=== PATIENT | male | born 1935 | race Caucasian/White ===

== ENCOUNTER 2017-03-19 12:59 | Emergency (ER) | payer OTHER ==
[~2017-03-19] VITALS: Ht 167.6 cm; Wt 54.5 kg
[~2017-03-19 12:59] MED LIST: ADVIN25/60 INH; ASPCH81X PO; CMBIN INH; EZET10TA47 PO; ISOS30TA35 PO; LACTCHW3 PO; LEVO1TAB33 PO; MAGN400T5 PO; NITR0.4S UT; OXYC7.5T78 PO; SENN-65 PO; SIMV20TA2 PO; SPRIN/30 INH
[2017-03-19 13:04] VITALS: TEMP 36.8; Ht 167.6 cm; Wt 54.5 kg
--- NOTE | 2017-03-19 13:22 | EMERGENCY ROOM VISIT NOTE ---
History Report prepared by Kirti: Josefa Joe Under the Supervision of: Dr. Hood Brown M.D. First contact with patient: 13:08 Chief Complaint: ILLNESS Stated Complaint: LOW BLOOD PRESSURE History of Present Illness The patient is a 81 year old male who presents to the Emergency Room with complaints of episodes of low blood pressure occurring at 4am this morning. The patient states that he got very dizzy this morning and begun sweating excessively. The patient then fell to the ground. He thinks he had a syncopal episode that last a few seconds. The patient did hit is head. He notes that months ago he burnt his left leg and has been followed by the wound clinic. He also notes that he has been loosing weight recently, about 30 pounds all together. The patient denies any other symptoms at this time. Source of History: patient Onset: 4 am this morning Position: other (global) Quality: other (low blood pressure) Timing: other (episode) Note: The patient denies any other symptoms at this time. Review of Systems See HPI for pertinent positives & negatives. A total of 10 systems reviewed and were otherwise negative. Past Medical & Surgical Medical Problems: (1) Cerebrovascular disease (2) Chronic obstructive lung disease (3) Dyslipidemia (4) s/p appendectomy (5) s/p coronar stenting (6) s/p inguinal hernia repair (7) s/p traumatic amputation fingers Family History FH: lung disease FHx: cancer FHx: heart disease Hypertension Social History Smokeless Tobacco Use: No Alcohol Use: other (6-8 beers daily) Marital Status: Housing Status: lives alone Occupation Status: retired Current/Historical Medications Scheduled Aspirin (Aspirin Chewable), 81 MG PO DAILY Cephalexin Monohydrate (Keflex), 500 MG PO TID Fluticasone Prop/Salmeterol (Advair Diskus 250/50 60 Dose), 1 PUFF INH BID Home O2 Therapy (Oxygen), 2 LITERS NA PRN Nitroglycerin (Nitrostat), 0.4 MG UT PRN Polyethylene Glycol 3350 (Miralax), 17 GM PO 3XWK Simvastatin (Zocor), 20 MG PO QPM Thiamine Hcl (Vitamin B-1), 100 MG PO DAILY Tiotropium [place] (Spiriva Handihaler), 1 CAP INH DAILY Scheduled PRN Acetaminophen (Tylenol), 500 MG PO UD PRN for Pain Hydrocodone/Acetaminophen 5MG/325MG ([place] 5MG/325MG), 1 TABLET PO Q8 PRN for Pain Ipratropium-Albuterol (Combivent Respimat), 2 PUFFS INH QID PRN for SOB/Wheezing Tramadol (Ultram), 50 MG PO Q8H PRN for Pain Allergies Coded Allergies: Penicillins (Verified Allergy, 11/02/09) Physical Exam Vital Signs Date Time Temp Pulse Resp B/P (MAP) Pulse Ox O2 Delivery O2 Flow Rate FiO2 03/19/17 15:00 65 18 130/73 03/19/17 14:25 70 17 112/69 96 03/19/17 13:04 36.8 88 20 96/62 98 Room Air Physical Exam GENERAL: Patient is chronically unwell appearing and in no acute distress. HEENT: No acute trauma, normocephalic atraumatic, mucous membranes moist, no nasal congestion, no scleral icterus. NECK: No stridor, no adenopathy, no meningismus, trachea is midline. LUNGS: No dyspnea. Clear to auscultation and equal bilaterally. No wheeze, no rhonchi. HEART: Regular rate and rhythm. No murmurs, rubs, gallops appreciated. ABDOMEN: Soft, nontender, bowel sounds positive, no masses appreciated, no peritonitis. BACK: No midline tenderness, no CVA tenderness EXTREMITIES: Normal motion all extremities, no cyanosis, no edema. Wound to left skin well dressed with no infection sign above the dressing. Patient notes dressing changed today and reports no evidence of infection. NEUROLOGIC: Alert and oriented, no acute motor or sensory deficits, no focal weakness, cranial nerves grossly intact. SKIN: No rash, no jaundice, no diaphoresis. Medical Decision & Procedures ER Provider Diagnostic Interpretation: Radiology results and stated below per my review and radiologist interpretation: HEAD CT NONCONTRAST CT DOSE: 537.48 mGy.cm HISTORY: Mental status change near-syncope, frontal head injury TECHNIQUE: Multiaxial CT images of the head were performed without the use of intravenous contrast. Comparison: None. Findings: The paranasal sinuses and mastoid air cells are clear. The calvarium and skull base are intact. The ventricles and sulci are within normal limits. There is no mass, hematoma, midline shift, or acute infarct. 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 Age-related atrophy and chronic small vessel change. Impression: No acute intracranial abnormality. Age-related change. Electronically signed by: Barrington Elizabeth M.D. 03/19/2017 2:24 PM Dictated Date/Time: 03/19/2017 2:22 PM CHEST ONE VIEW PORTABLE HISTORY: Atypical Chest Pain COMPARISON: Chest 05/03/2012. FINDINGS: Stable calcified granulomas within the left upper lobe. No new focal lung consolidations to suggest pneumonia. Mild diffuse interstitial thickening which is likely chronic. This remains unchanged. No pleural effusions. No pneumothorax. The heart is stable in size. Stable benign-appearing sclerotic lesion within the left humeral head. IMPRESSION: No significant change compared to the prior study. No acute process. Electronically signed by: Indio Muniz M.D. 03/19/2017 1:50 PM Dictated Date/Time: 03/19/2017 1:47 PM Laboratory Results 03/19/17 13:18 Red Blood Count 4.40, Mean Corpuscular Volume 89.3, Mean Corpuscular Hemoglobin 30.2, Mean Corpuscular Hemoglobin Concent 33.8, Mean Platelet Volume 10.8, Neutrophils (%) (Auto) 68.1, Lymphocytes (%) (Auto) 21.9, Monocytes (%) (Auto) 8.6, Eosinophils (%) (Auto) 0.8, Basophils (%) (Auto) 0.3, Neutrophils # (Auto) 4.50, Lymphocytes # (Auto) 1.45, Monocytes # (Auto) 0.57, Eosinophils # (Auto) 0.05, Basophils # (Auto) 0.02 03/19/17 13:18 Test 03/19/17 13:18 White Blood Count 6.61 K/uL (4.8-10.8) Red Blood Count 4.40 M/uL (4.7-6.1) Hemoglobin 13.3 g/dL (14.0-18.0) Hematocrit 39.3 % (42-52) Mean Corpuscular Volume 89.3 fL (80-100) Mean Corpuscular Hemoglobin 30.2 pg (25-34) Mean Corpuscular Hemoglobin Concent 33.8 g/dl (32-36) Platelet Count 215 K/uL (130-400) Mean Platelet Volume 10.8 fL (7.4-10.4) Neutrophils (%) (Auto) 68.1 % Lymphocytes (%) (Auto) 21.9 % Monocytes (%) (Auto) 8.6 % Eosinophils (%) (Auto) 0.8 % Basophils (%) (Auto) 0.3 % Neutrophils # (Auto) 4.50 K/uL (1.4-6.5) Lymphocytes # (Auto) 1.45 K/uL (1.2-3.4) Monocytes # (Auto) 0.57 K/uL (0.11-0.59) Eosinophils # (Auto) 0.05 K/uL (0-0.5) Basophils # (Auto) 0.02 K/uL (0-0.2) RDW Standard Deviation 43.9 fL (36.4-46.3) RDW Coefficient of Variation 13.4 % (11.5-14.5) Immature Granulocyte % (Auto) 0.3 % Immature Granulocyte # (Auto) 0.02 K/uL (0.00-0.02) Anion Gap 11.0 mmol/L (3-11) Est Creatinine Clear Calc Drug Dose 54.3 ml/min Estimated GFR () 96.1 Estimated GFR (Non- 82.9 BUN/Creatinine Ratio 30.5 (10-20) Calcium Level 9.4 mg/dl (8.5-10.1) Magnesium Level 2.2 mg/dl (1.8-2.4) Troponin I < 0.015 ng/ml (0-0.045) Laboratory results as reviewed by me. Medications Administered Medications (Trade) Dose Ordered Sig/[facility] Route Start Time Stop Time Status Last Admin Dose Admin Sodium Chloride 500 ml @ 999 mls/hr Q31M STAT IV 03/19/17 14:25 03/19/17 14:55 DC 03/19/17 14:25 999 MLS/HR ECG Indication: other (hypotension) Rate (beats per minute): 71 Rhythm: sinus rhythm Findings: 1st degree AV block, no acute ischemic change, no ectopy Change: no significant change (from May 03, 2012) ED Course 1309: The patient was evaluated in room C11. A complete history and physical exam was performed. 1425: Sodium Chloride 500 ml @ 999 mls/hr IV. 1431: The patient is feeling better. He is going to wait for IV fluids and then will be discharged home. 1445: Reevaluated the patient. Discussed results and discharge instructions: He verbalized understanding and agreement. The patient is ready for discharge. Medical Decision Differential: Vaso-vagal, Intracerebral Event, Neurologic, Infectious, Volume Deficiency, Hypoglycemia, Electrolyte Abnormality, Cardiac Source, Toxicologic, amongst other pathologies entertained. Medication Reconciliation: I attest that I have personally reviewed the patient 's current medication list. GCS of 15. Blood pressure screening: Patient was found to have normal blood pressure on screening and does not require follow-up. Pleasant 81 yr old male with near-syncope/syncope this morning around 4 am and hit his forehead. Mildly dehydrated. Labs unremarkable. CT head negative. CXR clear. EKG looks OK. Trop negative > 6 hours from episode. He is not interested in staying. Is not shob and symptoms not consistent with PE. Chronic wound left dobbins thus I feel dimer not applicable. Is not interested in staying in hospital. Aware can rted at any time if worsening or other concerns. Impression Primary Impression: Weakness Additional Impression: Syncope, near Scribe Attestation The scribe's documentation has been prepared under my direction and personally reviewed by me in its entirety. I confirm that the note above accurately reflects all work, treatment, procedures, and medical decision making performed by me. Departure Information Dispostion Home / Self-Care Referrals Libby George M.D. (PCP) Forms HOME CARE DOCUMENTATION FORM, IMPORTANT VISIT INFORMATION, WORK / SCHOOL INSTRUCTIONS Patient Instructions ED Near Syncope Unkn, My [facility] Problem Qualifiers
[2017-03-19] MEDS ORDERED: CEPH500C2 PO (13:37)
[2017-03-19] MEDS ORDERED: ACET-1256 PO (13:37)
[2017-03-19] MEDS ORDERED: HYDR-5688 PO (13:37)
[2017-03-19] MEDS ORDERED: TRAM-10 PO (13:37)
[2017-03-19] MEDS ORDERED: THIA100T11 PO (13:37)
[2017-03-19] MEDS ORDERED: POLY335019 PO (13:37)
[2017-03-19] MEDS ORDERED: IPRA1AER2 INH (13:37)
[2017-03-19] MEDS ORDERED: OXGN (13:37)
[2017-03-19 13:43] LABS: BASO % 0.3 %; BASO ABS # 0.02 K/uL (0-0.2); COMPLETE YES; EOS % 0.8 %; HEMATOCRIT 39.3 % (42-52); IG% 0.3 %; LYMPH % 21.9 %; LYMPH ABS # 1.45 K/uL (1.2-3.4); MEAN CELL VOLUME 89.3 fL (80-100); MEAN CORPUSCULAR HEMOGLOBIN 30.2 pg (25-34); MEAN CORPUSCULAR HGB CONC 33.8 g/dl (32-36); MEAN PLATELET VOLUME 10.8 fL (7.4-10.4); MONO % 8.6 %; NEUT % 68.1 %; PLATELET COUNT 215 K/uL (130-400); WHITE BLOOD COUNT 6.61 K/uL (4.8-10.8)
--- NOTE | 2017-03-19 13:51 | DIAGNOSTIC IMAGING REPORT ---
CHEST ONE VIEW PORTABLE HISTORY: Atypical Chest Pain COMPARISON: Chest 05/03/2012. FINDINGS: Stable calcified granulomas within the left upper lobe. No new focal lung consolidations to suggest pneumonia. Mild diffuse interstitial thickening which is likely chronic. This remains unchanged. No pleural effusions. No pneumothorax. The heart is stable in size. Stable benign-appearing sclerotic lesion within the left humeral head. IMPRESSION: No significant change compared to the prior study. No acute process. Electronically signed by: Indio Muniz M.D. 03/19/2017 1:50 PM Dictated Date/Time: 03/19/2017 1:47 PM
[2017-03-19 14:06] LABS: BLOOD UREA NITROGEN 26 mg/dl (7-18); BUN/CREATININE RATIO 30.5 (10-20); CALCIUM 9.4 mg/dl (8.5-10.1); CARBON DIOXIDE 21 mmol/L (21-32); CHLORIDE 108 mmol/L (98-107); CREATININE 0.85 mg/dl (0.60-1.40); GLUCOSE 118 mg/dl (70-99); MAGNESIUM 2.2 mg/dl (1.8-2.4); POTASSIUM 4.1 mmol/L (3.5-5.1); SODIUM 140 mmol/L (136-145)
[2017-03-19 14:25] VITALS: O2SAT 96
[2017-03-19] MEDS ORDERED: SODIUM CHLORIDE 0.9% 500ML 500 ML IV STA (14:25)
--- NOTE | 2017-03-19 14:25 | DIAGNOSTIC IMAGING REPORT ---
HEAD CT NONCONTRAST CT DOSE: 537.48 mGy.cm HISTORY: Mental status change near-syncope, frontal head injury TECHNIQUE: Multiaxial CT images of the head were performed without the use of intravenous contrast. Comparison: None. Findings: The paranasal sinuses and mastoid air cells are clear. The calvarium and skull base are intact. The ventricles and sulci are within normal limits. There is no mass, hematoma, midline shift, or acute infarct. 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 Age-related atrophy and chronic small vessel change. Impression: No acute intracranial abnormality. Age-related change. Electronically signed by: Barrington Elizabeth M.D. 03/19/2017 2:24 PM Dictated Date/Time: 03/19/2017 2:22 PM
[2017-03-19 15:00] VITALS: BP 130/73; PULSE 65
== END 2017-03-19 15:01 | disposition home or self-care (01) ==
LOC: C.EDB 13:01 → C.EDC 15:01
DX: R53.1 Weakness (principal); R55 Syncope and collapse; S09.90XA Unspecified injury of head, initial encounter; W22.8XXA Striking against or struck by other objects, initial encounter; E86.0 Dehydration; E78.5 Hyperlipidemia, unspecified; J44.9 Chronic obstructive pulmonary disease, unspecified; Z86.73 Personal history of transient ischemic attack (TIA), and cerebral infarction without residual deficits; Z98.61 Coronary angioplasty status; Z89.029 Acquired absence of unspecified finger(s); Z98.890 Other specified postprocedural states; Z79.82 Long term (current) use of aspirin; Z79.899 Other long term (current) drug therapy; Z88.0 Allergy status to penicillin; Z80.9 Family history of malignant neoplasm, unspecified; Z82.49 Family history of ischemic heart disease and other diseases of the circulatory system